=== PATIENT | female | born 1990 | race Caucasian/White ===

== ENCOUNTER 2018-01-06 18:04 | Observation (INO) | payer BC, SELFPAY | END 2018-01-06 22:03 | disposition home or self-care (01) | LOC: OBS 01-07 09:39 | PROVIDERS: Admitting Provider Family Medicine; PCP Family Medicine; Visit Provider Family Medicine | DX: O48.0 Post-term pregnancy (principal); O61.0 Failed medical induction of labor; O99.820 Streptococcus B carrier state complicating pregnancy; Z3A.40 40 weeks gestation of pregnancy; Z68.30 Body mass index [BMI] 30.0-30.9, adult | CPT/HCPCS: G0378; J3490 ==

== ENCOUNTER 2018-01-13 19:12 | Inpatient (IN) | payer BC, SELFPAY ==
[2018-01-13 20:21] LABS: HCT 37.5 % (36.0-46.0); HGB 12.7 g/dL (12.0-15.5); Mean Corp. HGB Concentration 33.9 g/dL (32.0-36.0); Mean Corpuscular Hemoglobin 28.1 pg (27.0-33.0); Mean Platelet Volume 12.1 fL (8.0-11.0); Platelet Count 151 x1000/uL (130-400); RBC 4.52 m/cumm (4.00-5.20); RBC Distribution Width 13.5 % (11.7-14.6); White Blood Cell Count 11.22 k/cumm (4.4-10.8)
[2018-01-13 21:32] LABS: ALT 10 U/L (12-78); AST 17 U/L (15-37); Albumin 2.6 g/dL (3.4-5.0); Alkaline Phosphatase 163 U/L (46-116); Anion Gap 11.3 mmol/L (3-11); BUN 16 mg/dL (7-18); Bilirubin, Total 0.2 mg/dL (0.2-1.0); CO2 20.7 mmol/L (21.0-32.0); CREATININE 0.76 mg/dL (0.55-1.02); Calcium 9.4 mg/dL (8.5-10.1); Chloride 106 mmol/L (98-107); Glucose 166 mg/dL (70-100); Magnesium 1.8 mg/dL (1.8-2.4); Potassium 3.9 mmol/L (3.5-5.1); Sodium 138 mmol/L (136-145); Total Protein 6.1 g/dL (6.4-8.2)
[2018-01-13 23:03] LABS: PROTEIN 8.6 mg/dL
[2018-01-13 23:04] LABS: COMMENT (LAB VIEW ONLY) 38.27 mg/dL; Prot/Crea Ur Ratio 0.22
[2018-01-13] MEDS: Zolpidem 5 MG TAB 10 MG PO (23:04)
[2018-01-14] MEDS: Normal Saline Flush 10 ML SYR IVP (08:52)
[2018-01-14] MEDS: Lactated Ringers 1,000 ML 125 ML IV (08:52)
[2018-01-14] MEDS: Acetaminophen 325 MG TAB 650 MG PO (10:05)
[2018-01-14] MEDS: Lactated Ringers 1,000 ML 999 ML IV (16:13)
[2018-01-14] MEDS: Bupivacaine 0.25% Pres-Free 10 ML VIAL EP (16:50)
[2018-01-14] MEDS: fentaNYL 100 MCG/2 ML VIAL EP (16:52)
[2018-01-14] MEDS: Bupivacaine 0.25% Pres-Free 30 ML VIAL (16:54)
[2018-01-14] MEDS: Ondansetron 4 MG/2 ML VIAL IVP (22:35)
[2018-01-15] MEDS: Lactated Ringers 1,000 ML 125 ML IV ×4 (03:58→17:28)
[2018-01-15] MEDS: Calcium Carbonate *TUMS* 500 MG CHEW 1000 MG PO (04:40)
[2018-01-15] MEDS: AZITHROMYCIN 500 MG in Normal Saline 250 ML 250 MG IVPB (07:45)
--- NOTE | 2018-01-15 15:27 | ROE_ITS ---
DATE OF PROCEDURE: January 15, 2018 PREOPERATIVE DIAGNOSIS: 1) Intrauterine at 42 weeks + 1 day. 2) Arrest of descent. POSTOPERATIVE DIAGNOSIS: Same. PROCEDURE: Primary low transverse delivery. SURGEON: Shawna Penaloza M.D. EXCEPTIONAL STUDENT EDUCATION TEACHER: Jones Baig ANESTHESIA: Penelope Bryant C.R.N.A. Spinal anesthesia. IV FLUIDS: 900 cc's of crystalloid. URINE OUTPUT: 200 cc's of clear anjana urine in the Grant catheter at the completion of the procedure . ESTIMATED BLOOD LOSS: 800 ml. DRAINS: Grant catheter to gravity drainage. COMPLICATIONS: None. SPECIMENS: Cord blood to lab. DISPOSITION: Awake and comfortable to recovery area in stable condition. INDICATIONS: 27-year-old G1-P0 female who has been followed by the providers at [facility] since her first trimester. The patient had an unremarkable course and underwent an i ndication of labor for post-dates management. She progressed in labor to a maximum cervical dilatio n of 10 cm with Pitocin augmentation. However, despite adequate contractions, she did not have appre ciable descent of the vertex presenting part from the zero to +1 station. All totalled, there was approximately 4 hours of pushing with satisfactory material expulsive efforts. FINDINGS AT THE TIME OF SURGERY: Viable male , who will be named Enrique, in the right occiput ante rior position, weighing 7 lbs. DESCRIPTION OF OPERATIVE PROCEDURE: The patient was taken to the operating room where her epidural which she had used for labor analgesia was removed and spinal anesthesia was obtained without difficu lty. She was placed in the dorsal supine position with a leftward tilt, prepped and draped in the [facility] sterile fashion. Included in the preparation was a Betadine prep of the vagina. She received C eftriaxone 2 gram IV prior too skin incision and received Azithromycin 500 mg IV during the surgery. Sequential compression devices were in place throughout the entire case. Grant catheter was placed to gravity drainage. A scalpel was used to incise the skin 2 cm superior to the pubic symphysis in a transverse fashion. The subcutaneous tissue was dissected using Bovie electrocautery to the level of the rectus fascia. The rectus fascia was then nicked in the midline and the fascial incision was extended laterally with curved Barrett scissors. Two Anu clamps were applied to the inferior aspect of this incision and th e rectus fascia was dissected off of the underlying rectus muscles. A similar procedure was used to dissect off the rectus muscles from the rectus fascia on the anterior portion of the incision. The r ectus muscles were in the midline with Bovie electrocautery and the peritoneum was entered bluntly and the peritoneal incision extended laterally. A bladder blade was then placed into the inc ision to retract the bladder away from the operative field. The vesicouterine fold was then grasped , incised with Metzenbaum scissors and the incision extended laterally. A bladder flap was created d igitally and once again the bladder blade was reinserted to retract the bladder away from the operati ve field. The lower uterine segment was incised with the scalpel in a transverse fashion. Upon ent ering the uterine cavity, the uterine incision was extended laterally with blunt technique. A single gloved hand was placed into the uterus and the head was delivered atraumatically with the assi stance of fundal pressure followed by shoulders, trunk and extremities. The infant's cord was doubl y clamped and cut and the infant handed off to the waiting Pediatric team. The placenta was deliver ed with a combination of uterine fundal massage and gentle cord traction. The uterus was then exteri orized, cleared of all clots and debris. An O'Antigo stitch was placed left of the left lateral talia in of the uterine incision for excellent hemostasis. The uterine incision was closed with an imbric ating suture of 0-Vicryl followed by a 2nd suture of 0-Vicryl in a vertical mattress fashion. Any si shady of bleeding were controlled by [id number] sutures of 0-Vicryl. Once the incision was noted to be hemostatic, the adnexa. The posterior aspect of the uterus was inspected and then the uterus wa s returned to the abdomen. The uterine incision was once again reinspected and found to be hemosta tic. The paracolic gutters were cleared of all clots and debris and the interior abdominal wall and the bladder flap inspected and noted to be hemostatic. The peritoneum was reapproximated with a running sutures of 2-0 Vicryl. The rectus fascia was closed with a running suture of 0-Vicryl extending from the lateral margins and overlapping in the midline. Subcutaneous space was closed with a running suture of 2-0 Vicryl followed by a subcuticular c losure of the skin incision with a 4-0 Vicryl. The skin was then closed with skin glue. The uteru s was massaged for any remaining clots and debris and the patient was then transferred to the [facility] and transported to the recovery area in stable condition. All sponge, lap and needle counts were correct x 2.
[2018-01-15] MEDS: Ketorolac 30 MG/ML VIAL IVP ×2 (15:46→21:15)
[2018-01-15] MEDS: Normal Saline Flush 10 ML SYR IVP (15:48)
[2018-01-16] MEDS: Lactated Ringers 1,000 ML 120 ML IV (01:11)
[2018-01-16] MEDS: Ketorolac 30 MG/ML VIAL IVP (04:08)
[2018-01-16 08:38] LABS: HCT 35.5 % (36.0-46.0); HGB 11.7 g/dL (12.0-15.5); Mean Corpuscular Hemoglobin 28.1 pg (27.0-33.0); Mean Corpuscular Volume 85.1 fL (80-95); Mean Platelet Volume 11.5 fL (8.0-11.0); Platelet Count 143 x1000/uL (130-400); RBC 4.17 m/cumm (4.00-5.20); RBC Distribution Width 13.9 % (11.7-14.6); White Blood Cell Count 13.48 k/cumm (4.4-10.8)
[2018-01-16] MEDS: Ibuprofen 600 MG TAB (10:40)
[2018-01-16] MEDS: Docusate Sodium 100 MG CAP PO (10:41)
[2018-01-16] MEDS: Ibuprofen 600 MG TAB PO (17:04)
[2018-01-17] MEDS: Ibuprofen 600 MG TAB PO ×4 (01:50→23:43)
[2018-01-17] MEDS: Acetaminophen 325 MG TAB 650 MG PO (19:45)
[2018-01-18] MEDS: Acetaminophen 325 MG TAB 650 MG PO ×2 (05:04→10:48)
[2018-01-18] MEDS: Ibuprofen 600 MG TAB PO (10:47)
== END 2018-01-18 12:00 | disposition home or self-care (01) | DRG 788 ==
PROVIDERS: Admitting Provider Family Medicine; PCP Family Medicine; Visit Provider Obstetrics & Gynecology Gynecology
PROC: 10D00Z1 Extraction of Products of Conception, Low, Open Approach (ICD-10-PCS; CPT 59514; principal; 2018-01-15 08:30)
DX: O48.1 Prolonged pregnancy (principal); Z37.0 Single live birth; Z3A.42 42 weeks gestation of pregnancy; O65.9 Obstructed labor due to maternal pelvic abnormality, unspecified; O62.1 Secondary uterine inertia; O63.1 Prolonged second stage (of labor); O76 Abnormality in fetal heart rate and rhythm complicating labor and delivery; O99.824 Streptococcus B carrier state complicating childbirth; Z68.30 Body mass index [BMI] 30.0-30.9, adult
CPT/HCPCS: 59514; 36415; 80053; 85027; 86850; 86900; 86901; 82565; 83735; 84156; J0131; J0456; J1885; J2310; J2405; J2540; J2590; J3010; J3490